=== PATIENT | female | born 1950 | race Caucasian/White ===

== ENCOUNTER 2024-11-17 05:37 | Day surgery (SDC) | payer MEDICARE, BC ==
[2024-11-10 12:01] LABS: BASOPHILS % (AUTO) 0.5 % (0-1); EOSINOPHILS # (AUTO) 0.1 X10'3 (0-0.9); EOSINOPHILS % (AUTO) 1.5 % (0-6); LYMPHOCYTES # (AUTO) 1.9 X10'3 (1.1-4.8); LYMPHOCYTES % (AUTO) 31.4 % (21-51); MEAN CORPUSCULAR HEMOGLOBIN 31.5 PG (27.0-31.0); MEAN CORPUSCULAR HGB CONC 33.6 g/dL (33.0-36.5); MEAN CORPUSCULAR VOLUME 93.7 FL (78-98); MEAN PLATELET VOLUME 8.3 FL (7.4-10.4); MONOCYTES # (AUTO) 0.5 X10'3 (0-0.9); MONOCYTES % (AUTO) 8.1 % (2-12); NEUTROPHILS # (AUTO) 3.5 X10'3 (1.8-7.7); NEUTROPHILS % (AUTO) 58.5 % (42-75); PRE OP HEMATOCRIT 45.7 % (35.0-45.0); PRE OP HEMOGLOBIN 15.4 g/dL (12.0-16.0); PRE OP PLATELET COUNT 239 X10'3 (140-440); PRE OP WHITE BLOOD COUNT 6.1 10'3 (4.8-10.8); RED BLOOD COUNT 4.88 X10'6 (4.20-5.60); RED CELL DISTRIBUTION WIDTH 12.6 % (11.5-14.5)
[2024-11-10 12:14] LABS: ALBUMIN 3.9 G/DL (3.4-5.0); ALKALINE PHOSPHATASE 85 IU/L (46-116); BLOOD UREA NITROGEN 25 MG/DL (7-18); BUN/CREATININE RATIO 44.6 (10.0-20.0); CALCIUM 9.4 MG/DL (8.5-10.1); CHLORIDE 105 MMOL/L (99-107); CREATININE 0.56 MG/DL (0.40-0.90); PRE OP ALT 27 U/L (30-65); PRE OP ANION GAP 6 (8-16); PRE OP AST 23 U/L (10-37); PRE OP BILIRUB, TOTAL 0.4 MG/DL (0.0-1.0); PRE OP GLUCOSE 110 MG/DL (70-104); PRE OP POTASSIUM 4.3 MMOL/L (3.4-5.1); PRE OP SODIUM 142 MMOL/L (135-145); TOTAL CARBON DIOXIDE 31.5 MMOL/L (24-32); TOTAL PROTEIN 7.8 G/DL (6.4-8.2); eGFR > 90 ML/MIN
[~2024-11-17] VITALS: Ht 157.5 cm; Wt 88.5 kg
[2024-11-17] MEDS: famotidine 20mg tablet PO ONE (05:30)
[~2024-11-17 05:37] MED LIST: ACET500P24 PO; ALBU8HFA INH; TETR15DR26 OP; [UNRECOGNIZED DRUG - CODE] TD
[2024-11-17 05:45] VITALS: BP 147/74; PULSE 66; RESP 16; TEMP 97.4; O2SAT 99
[2024-11-17] MEDS: clindamycin-Cleocin 900mg/D5W 50 ML IV ONE (05:56)
[2024-11-17] MEDS: ringers solution, lacted 1,000 ML IV SCH (06:21)
[2024-11-17] MEDS ORDERED: BUPIVAcaine 2.5mg/ml inj 50ml vial (contains preservative) ONE (06:37)
[2024-11-17] MEDS: famotidine/PF 10 mg/ml inj IV STA (07:41)
[2024-11-17] MEDS ORDERED: cloNIDine hcl/PF 100mcg/ml inj ONE (08:13)
[2024-11-17] MEDS ORDERED: ROPIVAcaine 0.5% (5mg/ml) 30ml vial ONE ×2 (08:14→08:57)
[2024-11-17] MEDS ORDERED: fentaNYL/PF 50MCG/1 ML 2ML syringe ONE (08:20)
[2024-11-17] MEDS: BUPIVAcaine/PF 2.5 mg/ml (0.25%) 30ml vial IJ ONE (08:44)
[2024-11-17] MEDS ORDERED: fentaNYL/PF 50MCG/1 ML 2ML syringe IV PRN ×2 (08:55)
[2024-11-17] MEDS ORDERED: proCHLORperazine 10 MG/2 ml inj IV PRN (08:55)
[2024-11-17] MEDS ORDERED: meperidine/PF 25mg/ml syringe IV PRN (08:55)
[2024-11-17] MEDS ORDERED: ringers solution, lacted 1,000 ML IV SCH (08:55)
[2024-11-17] MEDS ORDERED: acetaminophen 1,000mg/100ml IV 100 ML IV PRN (08:55)
[2024-11-17] MEDS ORDERED: labetalol 20mg/4ml (5mg/ml) syringe IV PRN (08:55)
[2024-11-17] MEDS ORDERED: ondansetron/PF 4mg/2ml inj IV PRN (08:55)
[2024-11-17] MEDS ORDERED: hydrALAZINE 20mg/ml inj. IV PRN (08:55)
[2024-11-17] MEDS ORDERED: ondansetron/PF 4mg/2ml inj ONE (08:57)
[2024-11-17] MEDS ORDERED: propofol inj 20 ML IV ONE (08:57)
[2024-11-17] MEDS ORDERED: LIDOcaine 0.5% (5mg/ml) 50ml vial ONE (08:57)
[2024-11-17] MEDS ORDERED: dexamethasone sod phosphate 4mg/ml inj. ONE (08:57)
[2024-11-17] MEDS ORDERED: midazolam 1 mg/ML 2ml injection ONE (08:57)
[2024-11-17 09:10] VITALS: BP 128/62; PULSE 55; RESP 16; O2SAT 99
[2024-11-17 09:20] VITALS: BP 131/62; PULSE 57; RESP 14; O2SAT 96
[2024-11-17 09:30] VITALS: BP 144/78; PULSE 61; RESP 13; O2SAT 96
[2024-11-17 09:40] VITALS: BP 153/72; PULSE 58; RESP 11; O2SAT 95
[2024-11-17 09:50] VITALS: BP 145/76; PULSE 56; RESP 12; O2SAT 94
== END 2024-11-17 10:10 | disposition home or self-care (01) ==
LOC: PAS 05:37
PROVIDERS: ATTEND Orthopaedic Surgery Hand Surgery
DX: M18.11 Unilateral primary osteoarthritis of first carpometacarpal joint, right hand (principal); E11.9 Type 2 diabetes mellitus without complications; E66.9 Obesity, unspecified; G89.18 Other acute postprocedural pain; Z86.73 Personal history of transient ischemic attack (TIA), and cerebral infarction without residual deficits; Z79.899 Other long term (current) drug therapy; Z98.890 Other specified postprocedural states
CPT/HCPCS: 25312; 25447; 36415; 64417; 80053; 82948; 85025; 93005; A4215; A4618; A6449; A7000; J0735; J1100; J2003; J2250; J2405; J2704; J2795; J3010; J3490; J7030; J7120; Z7506; Z7512; Z7610